=== PATIENT | female | born 1980 | race Caucasian/White ===

== ENCOUNTER 2022-06-12 18:27 | Emergency (ER) | payer SELFPAY ==
[~2022-06-12] VITALS: Ht 165.1 cm; Wt 70.0 kg
[2022-06-12] MEDS ORDERED: ACETAMINOPHEN 325MG TABLET PO ONE (19:15)
[2022-06-12] MEDS ORDERED: IBUPROFEN 400MG TABLET PO ONE (19:15)
[2022-06-12 19:52] VITALS: BP 138/90
[2022-06-12] MEDS ORDERED: IBUP-2028 MT (20:13)
[2022-06-12] MEDS ORDERED: TOPUD PO (20:13)
== END 2022-06-12 20:55 | disposition home or self-care (01) ==
LOC: ER 18:27
DX: R50.9 Fever, unspecified (principal); Z20.822 Contact with and (suspected) exposure to COVID-19; I11.0 Hypertensive heart disease with heart failure; E11.9 Type 2 diabetes mellitus without complications; D64.9 Anemia, unspecified
CPT/HCPCS: 87426; 99283; C9803